=== PATIENT | female | born 1985 | race Caucasian/White ===

== ENCOUNTER 2019-11-28 12:11 | Outpatient (CLI) | payer OTHER ==
[~2019-11-28 12:11] MED LIST: CALC200T3 PO; FOLI0.4T2 PO; IBUP200T49 PO; OXYC-302 PO; PREN1TAB60 PO
== END 2019-11-28 23:59 | disposition home or self-care (01) ==
LOC: CFH 12:11
PROVIDERS: ATTEND Obstetrics & Gynecology
DX: R92.2 Inconclusive mammogram (principal); N63.20 Unspecified lump in the left breast, unspecified quadrant
CPT/HCPCS: 76642; 77066; G0279